=== PATIENT | male | born 1975 | race Caucasian/White ===

== ENCOUNTER 2017-12-12 12:08 | Emergency (ER) | payer BC, SELFPAY ==
[2017-12-12] MEDS ORDERED: Morphine 5 MG/ML SYRINGE ONE (12:35)
[2017-12-12] MEDS ORDERED: Ondansetron HCl/PF 4 MG/2 ML Vial ONE (12:35)
[2017-12-12 12:57] LABS: ALT (SGPT) 61 U/L (8-55); AST (SGOT) 37 U/L (5-34); Albumin 4.5 g/dL (3.5-5.0); Alkaline Phosphatase 85 U/L (40-150); Anion Gap 14 mmol/L (10-20); BUN (Urea Nitrogen) 15 mg/dL (8.9-20.6); Bilirubin, Direct 0.3 mg/dL (0.1-0.3); Bilirubin, Total 0.9 mg/dL (0.2-1.2); Calc. Creatinine Clearance 0 mL/min (70-130); Calcium 9.4 mg/dL (7.8-10.44); Carbon Dioxide 20 mmol/L (22-29); Chloride 107 mmol/L (98-107); Estimated GFR-MDRD 84; Globulin 4.1 g/dL (2.4-3.5); Glucose 94 mg/dL (70-105); Protein, Total 8.6 g/dL (6.0-8.3); Sodium 137 mmol/L (136-145)
[2017-12-12 13:09] LABS: #Basophils 0.1 thou/uL (0.0-0.2); #Eosinphils 0.1 thou/uL (0.0-0.7); #Lymphocytes 1.5 thou/uL (1.20-3.40); #Monocytes 0.5 thou/uL (0.11-0.59); #Neutrophils 3.4 thou/uL (1.40-6.50); %Basophils 1.3 % (0.0-1.0); %Lymphocytes 27.1 % (21.0-51.0); %Monocytes 9.1 % (0.0-10.0); %Neutrophils 61.4 % (42.0-75.0); Hemoglobin 15.6 g/dL (14.0-18.0); Mean Corpuscular HGB CONC 37.8 g/dL (32.0-36.0); Mean Corpuscular Volume 87.3 fl (80.0-94.0); Mean Platelet Volume 9.1 fL (7.4-10.4); PLT Morphology Comment Appears Adequate; Platelet Count 147 thou/uL (130-400); RBC Morphology Normal; Red Blood Cell (RBC) Count 4.73 mill/uL (4.70-6.10); White Blood Cell (WBC) Count 5.5 thou/uL (4.8-10.8)
[2017-12-12 14:32] LABS: Bilirubin Negative (Negative); Blood, Urine Negative (Negative); Clarity Clear (Clear); Glucose, Urine (Dipstick) Negative (Negative); Leukocyte Negative (Negative); Nitrite Negative (Negative); Protein, Urine (Dipstick) Negative (Neg-Trace); Urobilinogen 0.2 mg/dL (0.2-1.0); pH, Urine 6.5 (5.0-9.0)
--- NOTE | 2017-12-12 16:36 | CT ---
CT ABDOMEN AND PELVIS WITH CONTRAST: Date: 12/12/17 HISTORY: Abdominal pain, dysuria. Left-sided abdominal pain. COMPARISON: CT abdomen and pelvis from 2012. FINDINGS: Lung bases are clear. No pericardial effusion. Focal acute epiploic appendagitis along the anterior mesenteric side of the descending colon, series 602, image 73, and series 2, image 49. No evidence for microperforation. No diverticula in this area. No free intraperitoneal gas. Spleen is enlarged, measuring 15.0 cm. The pancreas is unremarkable. The liver is unremarkable. Prior cholecystectomy. Hypodensities present in the superior pole of the left kidney, minimally increased in size from the c omparison examination, now measuring up to 8.0 mm. Nonobstructing calculus inferior pole left kidney, measuring 2.0 x 4.0 mm in the same location as the prior calculus from 2012, although this has sligh tly grown in size. Bilateral L5 pars interarticularis defects. IMPRESSION: 1. Uncomplicated epiploic appendagitis of the descending left colon along the anterior mesenteric si de. No diverticula in this area. No evidence for microperforation. 2. Left inferior renal calculus measuring 2.0 x 4.0 mm. No evidence of obstructive uropathy. 3. Mild size increase hypodensity superior pole left kidney measuring fluid attenuation, although st ill too small to characterize. POS: [facility]
== END 2017-12-12 15:00 | disposition home or self-care (01) ==
LOC: SCSER 12:08
DX: R10.9 Unspecified abdominal pain (principal); R10.814 Left lower quadrant abdominal tenderness
CPT/HCPCS: 74177; 80053; 81003; 82248; 83690; 85025; 93005; 96361; 96374; 96375; 99406; J2270; J2405

== ENCOUNTER 2018-02-13 14:17 | Outpatient (CLI) | payer BC ==
--- NOTE | 2018-02-13 17:09 | MRI ---
MRI OF THE RIGHT SHOULDER WITH INTRA-ARTICULAR CONTRAST 02/13/18 HISTORY: M19.012 - arthritis. COMPARISON: None. FINDINGS: BICEPS TENDON: There is an interstitial delaminating tear of the intra-articular biceps tendon. LABRUM: There is a tear of the inferior labrum at 6 o'clock chondrolabral junction extending into the articul ar cartilage. There are full thickness cartilage fissures at the inferior most articular cartilage at 6 o'clock at the chondrolabral junction with some subchondral marrow edema. ROTATOR CUFF: Intact. BONES: No acute fracture or malalignment. Type II acromion. IMPRESSION: 1. Inferior labral tear 6 o'clock extending into the adjacent articular cartilage with some smal l subchondral reactive marrow changes. 2. Interstitial delaminating tear of the intra-articular biceps tendon which does not extend to the biceps labral anchor. 3. Intact rotator cuff. POS: [facility]
--- NOTE | 2018-02-13 21:09 | RAD ---
FLUOROSCOPIC GUIDED RIGHT SHOULDER ARTHROGRAM: 02/13/18 CLINICAL HISTORY: AC joint osteoarthritis, right side, right shoulder pain. PROCEDURE: Informed consent was obtained. Patient was escorted to the procedural suite and placed in the supine position. Cafeteria Counter Attendant imaging was performed. The right shoulder was then prepped and draped in standard stepan rile fashion. Topical anesthesia was achieved with 1% buffered lidocaine. Subsequently uneventful acc ess in the right glenohumeral joint was obtained with a 22 gauge needle. Small volume of radiopaque c ontrast was utilized for confirmation. Imaging was stored for documentation. Subsequently 9 mL volume of contrast cocktail containing lidocaine, epinephrine, radiopaque contrast, gadolinium and saline w as instilled into the right glenohumeral joint. Imaging was stored for documentation. Needle was then removed. Patient tolerated the procedure well without evidence of complication. The patient was linder sferred to MRI to undergo right shoulder MR arthrogram. No procedural complication. RADIATION EXPOSURE DATA: 0.1 minutes intermittent fluoroscopy. 4.3 uGy*m2. IMPRESSION: Technically successful right shoulder arthrogram under fluoroscopic guidance. POS: [facility]
== END 2018-02-13 14:18 | disposition home or self-care (01) ==
LOC: RAD 14:17
PROVIDERS: ATTEND Orthopaedic Surgery
DX: M19.011 Primary osteoarthritis, right shoulder (principal); S43.491A Other sprain of right shoulder joint, initial encounter; S46.211A Strain of muscle, fascia and tendon of other parts of biceps, right arm, initial encounter
CPT/HCPCS: 23350

== ENCOUNTER 2018-03-03 08:52 | Outpatient (CLI) | payer BC ==
[2018-03-03 10:05] LABS: #Eosinphils 0.1 thou/uL (0.0-0.7); #Lymphocytes 1.7 thou/uL (1.20-3.40); #Monocytes 0.5 thou/uL (0.11-0.59); #Neutrophils 2.9 thou/uL (1.40-6.50); %Basophils 0.8 % (0.0-1.0); %Eosinophils 1.7 % (0.0-10.0); %Monocytes 10.1 % (0.0-10.0); %Neutrophils 55.5 % (42.0-75.0); Hemoglobin 15.3 g/dL (14.0-18.0); Mean Corpuscular HGB CONC 36.7 g/dL (32.0-36.0); Mean Corpuscular Hemoglobin 33.4 pg (27.0-31.0); Mean Corpuscular Volume 90.9 fL (78.0-98.0); Mean Platelet Volume 8.7 fL (7.4-10.4); Platelet Count 143 thou/uL (130-400); Red Blood Cell (RBC) Count 4.58 mill/uL (4.70-6.10); White Blood Cell (WBC) Count 5.3 thou/uL (4.8-10.8)
[2018-03-03 10:27] LABS: Anion Gap 12 mmol/L (10-20); BUN (Urea Nitrogen) 18 mg/dL (8.9-20.6); Calc. Creatinine Clearance 0 mL/min (70-130); Calcium 9.6 mg/dL (7.8-10.44); Carbon Dioxide 24 mmol/L (22-29); Chloride 105 mmol/L (98-107); Estimated GFR-MDRD 75; Glucose 89 mg/dL (70-105); Potassium 4.6 mmol/L (3.5-5.1); Sodium 136 mmol/L (136-145)
--- NOTE | 2018-03-04 06:56 | EKG ---
Test Reason : Blood Pressure : / mmHG Vent. Rate : 076 BPM Atrial Rate : 076 BPM P-R Int : 162 ms QRS Dur : 082 ms QT Int : 396 ms P-R-T Axes : 061 037 030 degrees QTc Int : 445 ms Normal sinus rhythm Septal infarct , age undetermined (Possibly)/Poor R wave progression Abnormal ECG When compared with ECG of 12-DEC-2017 13:01, Septal infarct is now Present Nonspecific T wave abnormality has replaced inverted T waves in Inferior leads Confirmed by AMPARO LOMBARDO ([id number]) on 03/04/2018 6:55:59 AM Referred By: [facility] Confirmed By:AMPARO LOMBARDO
== END 2018-03-03 08:53 | disposition home or self-care (01) ==
LOC: LABBT 08:52
PROVIDERS: ATTEND Orthopaedic Surgery
DX: Z01.818 Encounter for other preprocedural examination (principal); S43.401A Unspecified sprain of right shoulder joint, initial encounter
CPT/HCPCS: 80048; 85025; 93005; 93010

== ENCOUNTER 2018-03-05 07:29 | Day surgery (SDC) | payer BC ==
[2018-03-03 09:12] VITALS: BMI 30.7
[2018-03-05] MEDS ORDERED: Ropivacaine 0.2% HCl/PF 20 ML ONE (08:31)
[2018-03-05] MEDS ORDERED: Fentanyl 100 MCG/2 ML VIAL ONE (08:31)
[2018-03-05] MEDS ORDERED: Midazolam HCl 2 mg/2 ml Vial ONE (08:31)
[2018-03-05] MEDS ORDERED: Ropivacaine HCl/PF 1,100 MG in Sodium Chloride 0.9% 440 ML NERVE BLCK SCH (09:13)
[2018-03-05] MEDS ORDERED: traMADol HCl 50 MG TAB PO PRN ×2 (09:13)
[2018-03-05] MEDS ORDERED: Zolpidem Tartrate 5 MG TAB PO PRN (09:13)
[2018-03-05] MEDS ORDERED: Promethazine HCl 25 MG/ML VIAL IM PRN (09:13)
[2018-03-05] MEDS ORDERED: Ondansetron HCl/PF 4 MG/2 ML Vial IVP PRN (09:13)
[2018-03-05] MEDS ORDERED: Fentanyl 100 MCG/2 ML VIAL IV PRN (09:13)
[2018-03-05] MEDS ORDERED: HYDROcodone/Acetaminophen 10/325 mg Tablet PO PRN ×2 (09:13)
[2018-03-05] MEDS ORDERED: Bupivacaine/Epinephrine 0.25% 30 ML VIAL ONE ×2 (10:13→10:49)
[2018-03-05] MEDS ORDERED: CEFAZOLIN/Water 2 GM/20 ML SYRINGE ONE (10:19)
[2018-03-05] MEDS ORDERED: Ketorolac Tromethamine 30 MG/ML VIAL IVP SCH (12:00)
[2018-03-05] MEDS ORDERED: Ropivacaine 0.5% HCl/PF (150 MG/30 ML VIAL) ONE (13:53)
[2018-03-05] MEDS ORDERED: Ketorolac Tromethamine 30 MG/ML VIAL ONE (14:01)
[2018-03-05] MEDS ORDERED: Ondansetron HCl/PF 4 MG/2 ML Vial ONE (14:01)
[2018-03-05] MEDS ORDERED: Glycopyrrolate 0.2 MG/ML 5 ML SYRINGE ONE (14:01)
[2018-03-05] MEDS ORDERED: PROPOFOL 200 MG/20 ML VIAL ONE (14:01)
--- NOTE | 2018-03-05 23:31 | OP ---
DATE OF PROCEDURE: 03/05/2018 PREOPERATIVE DIAGNOSES: Degenerative superior labrum anterior and posterior tear, right shoulder as well as a small inferior labral tear and impingement. POSTOPERATIVE DIAGNOSES: Degenerative superior labrum anterior and posterior tear, right shoulder as well as a small inferior labral tear and impingement. PROCEDURE PERFORMED: Right shoulder arthroscopy with debridement of degenerative labral tear followe d by subacromial decompression, followed by open biceps tenodesis. SURGEON: Nilay Neumann M.D. RESIDENTIAL COUNSELOR: Varun Dover PA-C. BLOOD LOSS: Minimal. ANESTHESIA: He did have a general anesthetic as well as preoperative block. IMPLANTS: A 7 x 23 Bio[employer]posite Bio-Tenodesis screw. DISPOSITION: He did go to the recovery room in stable condition. INDICATIONS: This is a very active 42-year-old male, who has been having problems with his right dyllan ulder. He has tried injections, therapy, medicines, and unfortunately, has failed to get better. At this time, he is opting for surgery. DESCRIPTION OF PROCEDURE: After all appropriate consent forms were explained and signed, he was take n back to the operating room and at this time was given general anesthetic. Once the level of anesth esia was appropriate, the patient was placed in a lateral decubitus position. All bony prominences w ere well-padded. Lisa bag was inflated to help hold him in this position. The arm was taken through full range of motion and was then hung up in arthroscopic fashion with 10 pounds. At this time, the right upper extremity and shoulder were then prepped and draped in the standard surgical fashion. B soraida anatomic landmarks were drawn out and the subacromial space was infiltrated with Marcaine with ep inephrine. A posterior portal was then made. The scope was placed into the glenohumeral joint. An anterior working portal was then made just superior to the subscapularis tendon. Diagnostic arthrosc opy commenced. The subscapularis was intact. Articular surface of the humeral head and glenoid were in excellent condition. Rotator cuff insertion appeared to be normal. Axillary pouch contained no loose bodies. The inferior labrum was noted to have a couple-millimeter tear at around 05:30. No si gnificant instability was noted. This is really just a small punctate lesion. Remaining labrum was found to be intact until the superior labrum was evaluated and was found to have a degenerative SLAP tear. This was debrided with the shaver. At this time, an 18-gauge needle was used to place a sutur e through the biceps tendon. The arthroscopic scissors were then used to cut the tendon off the supe rior labrum. This tear was debrided with the shaver. We then removed this scope from the glenohumer al joint and reapplied it into the subacromial space. Lateral working portal was made and a subacrom ial decompression was performed using the shaver. All bursa was removed. The underlying cuff was fo und to be in good condition. A small amount of bone was removed with the shaver. At this time, we t hen removed the scope, drained the shoulder, and made an incision for biceps tenodesis. The Bovie wa s used to create any brisk venous bleeding. Sharp dissection was used to cut down through the deltoi d fascia. Finger dissection was used from then on to dissect in line with the fibers to get down to the underlying transverse humeral ligament in the bicipital groove. We opened up the transverse sam ral ligament to expose the biceps tendon. This was pulled out into the wound. All synovitic tissue was removed and all brisk venous bleeding was coagulated. The tendon was then sutured, the intra-art icular portion was cut off and removed from the field. We then placed our guide pin, reamed with a 7 -mm reamer to a depth of 25 and placed a 7 x 23 [employer]posite Bio-Tenodesis screw in standard fashion. Sutures were tied over top of this, so the screw could not back out. We then thoroughly irrigated and dried our wounds. We then closed our deltoid fascia with a running Vicryl, 2-0 Vicryl, and nylon sutures for the skin. Each portal was closed with simple nylon suture as well. Bulky sterile dress ing was applied. The patient was then awakened and he was taken to the recovery room in stable condi tion. All counts were correct at the end of the case and he did receive preoperative IV antibiotics.
== END 2018-03-05 14:50 | disposition home or self-care (01) ==
LOC: SDC 07:29
PROVIDERS: ATTEND Orthopaedic Surgery
PROC: 0LS10ZZ Reposition Right Shoulder Tendon, Open Approach (ICD-10-PCS; principal; 2018-03-05)
DX: S43.431A Superior glenoid labrum lesion of right shoulder, initial encounter (principal); S46.219A Strain of muscle, fascia and tendon of other parts of biceps, unspecified arm, initial encounter; G56.21 Lesion of ulnar nerve, right upper limb; M19.011 Primary osteoarthritis, right shoulder; Z88.2 Allergy status to sulfonamides; Z88.8 Allergy status to other drugs, medicaments and biological substances
CPT/HCPCS: C1713; J1885; J2250; J2405; J2704; J2795; J3010; J7050

== ENCOUNTER 2023-12-25 14:58 | Outpatient (CLI) | payer BC | END 2023-12-25 14:59 | disposition home or self-care (01) | LOC: BICMRI 14:58 | PROVIDERS: ATTEND Orthopaedic Surgery | DX: M23.92 Unspecified internal derangement of left knee (principal) ==